=== PATIENT | male | born 2000 | race Caucasian/White ===

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

== ENCOUNTER 2022-08-20 18:04 | Emergency (ER) | payer OTHER ==
[~2022-08-20] VITALS: Wt 113.4 kg
[2022-08-20] MEDS ORDERED: CEPHALEXIN500 M1 PO (21:16)
== END 2022-08-20 21:31 | disposition home or self-care (01) ==
LOC: ED 18:04
DX: S61.214A Laceration without foreign body of right ring finger without damage to nail, initial encounter (principal); Z79.899 Other long term (current) drug therapy; W45.8XXA Other foreign body or object entering through skin, initial encounter; Y93.89 Activity, other specified; Y92.89 Other specified places as the place of occurrence of the external cause; Y99.8 Other external cause status

== ENCOUNTER 2023-08-01 17:19 | Emergency (ER) | payer OTHER ==
[~2023-08-01] VITALS: Ht 180.3 cm; Wt 126.6 kg
[~2023-08-01 17:19] MED LIST changes: +CEPHALEXIN500 M1 PO
[2023-08-01] MEDS ORDERED: PREDNISONE20 M1 PO (19:48)
== END 2023-08-01 20:52 | disposition home or self-care (01) ==
LOC: ED 17:19
DX: B34.9 Viral infection, unspecified (principal); Z20.822 Contact with and (suspected) exposure to COVID-19; R19.7 Diarrhea, unspecified; F41.9 Anxiety disorder, unspecified; Z79.2 Long term (current) use of antibiotics; Z79.899 Other long term (current) drug therapy

== ENCOUNTER 2024-02-14 20:33 | Emergency (ER) | payer OTHER ==
[~2024-02-14] VITALS: Ht 175.2 cm; Wt 128.4 kg
[~2024-02-14 20:33] MED LIST changes: +PREDNISONE20 M1 PO
[2024-02-14] MEDS ORDERED: LORazepam 1 MG TAB PO ONE (20:40)
== END 2024-02-14 22:51 | disposition home or self-care (01) ==
LOC: ED 20:33
DX: F41.9 Anxiety disorder, unspecified (principal); J45.909 Unspecified asthma, uncomplicated; F32.A Depression, unspecified

== ENCOUNTER 2025-02-05 15:10 | Emergency (ER) | payer OTHER ==
[~2025-02-05] VITALS: Ht 175.2 cm; Wt 129.3 kg
[2025-02-05] MEDS ORDERED: ACETAMINOPHEN 325 MG TAB PO ONE (15:40)
[2025-02-05] MEDS ORDERED: MEDROL DOSEPAK4 MG PO (16:51)
== END 2025-02-05 16:56 | disposition home or self-care (01) ==
LOC: ED 15:10
DX: J45.909 Unspecified asthma, uncomplicated (principal); Z20.822 Contact with and (suspected) exposure to COVID-19; R19.7 Diarrhea, unspecified; Z79.899 Other long term (current) drug therapy

== ENCOUNTER 2025-02-12 17:06 | Emergency (ER) | payer OTHER ==
[~2025-02-12] VITALS: Ht 154.9 cm; Wt 131.5 kg
[~2025-02-12 17:06] MED LIST changes: +MEDROL DOSEPAK4 MG PO
[2025-02-12] MEDS ORDERED: Ketorolac Tromethamine 60 MG/2 ML VIAL IM ONE (17:45)
== END 2025-02-12 19:21 | disposition home or self-care (01) ==
LOC: ED 17:06
DX: S93.402A Sprain of unspecified ligament of left ankle, initial encounter (principal); F41.9 Anxiety disorder, unspecified; J45.909 Unspecified asthma, uncomplicated; F32.A Depression, unspecified; W17.2XXA Fall into hole, initial encounter; Y93.01 Activity, walking, marching and hiking; Y92.89 Other specified places as the place of occurrence of the external cause; Y99.8 Other external cause status

== ENCOUNTER → 2025-04-04 | Outpatient (CLI) | payer OTHER | END | disposition home or self-care (01) | LOC: RAD 13:31 | PROVIDERS: ATTEND Nurse Practitioner Family | DX: R10.13 Epigastric pain (principal) ==